=== PATIENT | female | born 1965 | race Caucasian/White ===

== ENCOUNTER 2017-12-19 07:46 | Emergency (ER) | payer OTHER ==
[2017-12-19 08:07] VITALS: BP 106/59
--- NOTE | 2017-12-19 08:30 | UC ---
Throat Pain/Nasal Sadiq HPI - HPI Summary HPI Summary: Pt c/o sudden onset fever, chills, nasal congestion, ST that has resolved since onset, sinus pressure, PND, X3 days. - History of Current Complaint Chief Complaint: UCGeneralIllness Stated Complaint: COLD SYMPTOMS Time Seen by Provider: 12/19/17 08:12 Hx Obtained From: Patient ?: No Onset/Duration: Sudden Onset, Still Present Severity: Mild Pain Intensity: 8 Associated Signs & Symptoms: Positive: Sinus Discomfort, Fever - Allergies/Home Medications Allergies/Adverse Reactions: Allergies Allergy/AdvReac Type Severity Reaction Status Date / Time No Known Allergies Allergy Verified 12/19/17 08:07 Home Medications: Home Medications Methylphenidate TAB* [Ritalin TAB*] 12/19/17 [History] PMH/Surg Hx/FS Hx/Imm Hx Previously Healthy: Yes - Surgical History Surgical History: Yes Surgery Procedure, Year, and Place: GASTRIC BYPASS, HERNIA REPAIR, GALLBLADDER REMOVAL, HYSTERECTOMY - Family History Known Family History: Positive: Cardiac Disease - Social History Occupation: Employed Full-time Lives: With Family Alcohol Use: None Substance Use Type: None Smoking Status (MU): Never Smoked Tobacco Have You Smoked in the Last Year: No - Immunization History Most Recent Influenza Vaccination: [id number] season Review of Systems Constitutional: Fever, Chills, Fatigue Skin: Negative Eyes: Negative ENT: Sore Throat, Ear Ache, Sinus Congestion, Sinus Pain/Tenderness Respiratory: Cough Cardiovascular: Negative Gastrointestinal: Negative Genitourinary: Negative Motor: Negative Neurovascular: Negative Musculoskeletal: Negative Neurological: Headache Psychological: Negative Is Patient Immunocompromised?: No All Other Systems Reviewed And Are Negative: Yes Physical Exam Triage Information Reviewed: Yes Appearance: Ill-Appearing Vital Signs: Initial Vital Signs Temp 98.6 F 12/19/17 08:01 Pulse 79 12/19/17 08:01 Resp 16 12/19/17 08:01 BP 106/59 12/19/17 08:01 Pulse Ox 98 12/19/17 08:01 Vital Signs Reviewed: Yes Eye Exam: Normal ENT Exam: Other ENT: Positive: Nasal congestion, Sinus tenderness Dental Exam: Other Dental: Positive: Other: - poor dentition Neck exam: Normal Respiratory Exam: Normal Cardiovascular Exam: Normal Musculoskeletal Exam: Normal Neurological Exam: Normal Psychological Exam: Normal Skin Exam: Normal Diagnostics - Laboratory Diagnostic Studies Completed/Ordered: Rapid flu: positive B Throat Pain/Nasal Course/Dx - Differential Dx/Diagnosis Differential Diagnosis/HQI/PQRI: Influenza, URI Provider Diagnoses: Influenza B Discharge - Discharge Plan Condition: Stable Disposition: HOME Prescriptions: Oseltamivir CAP* [Tamiflu CAP*] 75 mg PO Q12H #10 cap Patient Education Materials: Influenza (ED) Forms: *Work Release Referrals: Dilma Shaikh MD [Primary Care Provider] - If Needed
== END 2017-12-19 08:52 | disposition home or self-care (01) ==
LOC: UCCORT 07:46
DX: J10.1 Influenza due to other identified influenza virus with other respiratory manifestations (principal)
CPT/HCPCS: 87502; 99212; G0463

== ENCOUNTER 2018-11-20 07:39 | Emergency (ER) | payer OTHER ==
--- OUTSIDE RECORDS SUMMARY | 2018-11-20 07:48 | XMS REPORT ---
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 Active Onset: 10/29/2011 Prolapse of female genital organs Mariam Cartagena M.D. Active Onset: 10/29/2011 Rectal prolapse Mariam Cartagena M.D. Active Onset: 04/27/2012 Pre-surgery evaluation Kerry Burkett M.D. Active Onset: 04/27/2012 Excessive and frequent Kerry Burkett M.D. Active menstruation Onset: 04/27/2012 Disorder of oral soft tissues Kerry Burkett M.D. Active Onset: 08/25/2012 Acute maxillary sinusitis Adi Sanford M.D. 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 Active Onset: 02/17/2018 Abdominal pain Dilma Burleson M.D. Active Onset: 09/16/2015 Cramp and spasm Dilma Burleson M.D. Active Onset: 09/16/2015 Vitamin D deficiency Dilma Burleson M.D. Active Onset: 09/16/2015 Adjustment disorder with depressed Dilma Burleson M.D. Active mood Onset: 08/01/2013 Deficiency anemias Dilma Burleson M.D. Active Onset: 08/01/2013 Obesity Dilma Burleson M.D. Active Onset: 08/01/2013 Acute pancreatitis Dilma Burleson M.D. Active Family History Date Family Member(s) Problem(s) Comments General Breast CA - MGM, PGM,2 cousins had Breast CA in 30'scolon CA - MGF, PGM Father due to Diabetes () - 77. Mother 77.Diabetes, HT Attack age 62; CABG x3 age 64. Bladder Cancer. Number of Children 4. from 30-11. daughter lives in [place]. First Son healthy. lives in [place] Second Son Dilshad, ADHD. lives with father. in a custody machado x 11 years. First Daughter healthy. lives in [place]. Second Daughter healthy. lives in [place]. Number of Siblings Siblings: 2 First Brother DM. [place]. Second Brother HTN. Estranged since Mother's . In [facility]. 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 Usually liters of diet pepsi. Less than a liter diet pepsi () now 2 liter diet pepsi daily (03/21/15) Exercise Type/Frequency Does not exercise Current Currently Active The patient is currently not sexually active Allergies, Adverse Reactions, Alerts Date Description Reaction Status Severity Comments 10/29/2011 NKDA active Medications Medication Date Status Form Strength Qnty SIG Indications Ordering Provider Valacyclovir HCL 10/07 Active Tablets 500mg 20tabs take 1 B00.9 Dilma Melchor /Rose tablet by gerald Burleson M.D. twice a day x 5 days for an outbreak. Prednisone 10/04 Active Tablets 20mg 21tabs 3 tabs x 4 M46.1 Breanna Francia /2017 days, 2 Putnam, tab x 3 PACKAGE MAKER days, 1 tab x 3 days then stop Cyclobenzaprine 07/26 Active Tablets 5mg 60tabs one to two M46.1 Breanna Francia HCL /2017 tablet Putnam, every PACKAGE MAKER night at bedtime as needed Metoprolol 05/19 Active Tablets 25mg 90tabs take one F43.22 Dilma L. Tartrate /2017 tablet by Neel, mouth once M.D. a day Ondansetron 05/19 Active Tablets 4mg 60tabs dissolve 1 R10.9 Dilma L. Dispers tablet by Neel, mouth M.D. every 8 hours as needed for nausea Nystatin 02/17 Active Cream [id number] 30gm apply B35.6 Dilma L. t/GM cream Neel, twice M.D. daily to rash Magnesium/Potass 12/27 Active 1 po qd Unknown ium/Zinc Ritalin 03/21 Active Tablets 10mg 60tabs 1 by mouth F90.0 Dilma L. by mouth Neel, twice M.D. 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 mouthtwice Neel, - daily for M.D. 10/04 10 days. Diflucan 02/17 Hx Tablets 200mg 4tabs 1 by mouth B35.6 Dilma L. now. Neel, - repeat in M.D. 05/19 one week as necessary. Cyclobenzaprine 12/12 Hx Tablets 5mg 60tabs take 1 M54.2 Flor HCL tablet by Donaldson, - mouth M.D. 01/05 times daily as needed Amoxicillin 12/12 Hx Tablets 500mg 30tabs 1 by mouth J01.80 Dilma L. three Neel, - times M.D. 01/06 daily x days. Able To Return 12/12 Hx without J01.80 Dilma Melchor To Work 12/16/2015 Romel Lindsey. Has M.D. 04/28 incapcitat ed this week due to illness. Amoxicillin 05/16 Hx Tablets 875mg 20tabs 1 by mouth 461.0 Dilma L. /2014 twice a Neel, - day x 10 M.D. Vitamin D3 03/21 Hx Capsules [id number] 12caps 1 by mouth 268.9 Dilma L. /2014 weekly for Neel - 12 weeks M.D. 09/16 Metronidazole 03/14 Hx Tablets 500mg 52tabs 1po three 009.3 Dilma L. times a Neel, - day x 14 M.D. Methocarbamol 09/03 Hx Tablets 500mg 120tabs 1-2 pills 724.2 Dilma L. up to 4 Neel, - times M.D. 03/14 daily. Off Work Note. 09/03 Hx medical 724.2 Dilma L. 09/03, , And excuse Neel - M.D. 03/14 Vesicare 06/19 Hx Tablets 5mg 30tabs 1 po daily 788.33 Shayla Brown, PACKAGE MAKER - 03/14 Escitalopram 04/23 Hx Tablets 20mg 30tabs 1 po qd 311 Dilma L. Oxalate Neel - M.D. 03/14 Vitamin D 02/17 Hx Capsules [id number] 8caps 1 po Dilma L. /2013 weekly x Neel - 8. M.D. 04/23 Escitalopram 02/05 Hx Tablets 10mg 45tabs 2 po qd 311 Dilma L. Oxalate Romel Burleson M.D. 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 09/04 Note For Work 08/25 Hx Please Adi Dick /2011 excuse Romel Sanford absence M.DDenilson 08/26 from work today. May return without restrictio n tomorrow. Denavir 04/27 Hx Cream 1% 3grams apply 528.9 Kerry Patton topically aMdelaine - to Rodrigo.Yara 08/25 affected area on lips and face every 2 hours whileawake for 4 days Amoxicillin/Clav 02/04 Hx Tablets 500-125mg 20tabs 1 po bid x 461.9 Harini ulanate /2011 10 days Usha, Potassium - Afnp-C 04/27 Note For Work 02/04 Hx may return 461.9 Harini to work Usha, - tomorrow Afnp-C 02/07 w/o /2011 restrictio ns Phenazopyridine 10/29 Hx Tablets 200mg 12tabs 1 tab po Mariam Livingston HCL /2010 tid prn Osiel - urinary/pe [place] 04/27 lvic pain /2011 Note For Work 10/29 Hx Please Mariam Livingston /2010 excuse Osiel - absence M.DDenilson 02/04 from work today. Ciprofloxacin 02/20 Hx Tablets 500mg 20tabs 1 po bid Hipolito T. HCL Romel Porter M.D. 10/29 Note For Work 02/20 Hx seen today Hipolito Cordova /2010 for Romel Porter medical [place] 10/29 problem. no work 02/19-02/20 due to illness. may return 02/21 Penvk 12/01 Hx 500 20units use bid Yosi Garcia /2010 x 10 days Romel Ernst M.D. 10/29 Ritalin 09/08 Hx Tablets 20mg 1 po bid prn - 10/29 Ok To Return To 07/17 Hx 577.0 Dilma L. Work Full Duty. oRmel Burleson M.D. 09/08 Penicillin V 06/26 Hx Tablets 500mg 30tabs 1 po tid x 525.9 Harini Potassium 10 days Usha, - Afnp-C 09/08 Out Of Work 06/26 Hx Latasha was 525.9 Harini seen today Usha, - in this Afnp-C 06/30 office Xanax 02/25 Hx Tablets 0.25mg 30tabs 1 po at Dina tid prn Klarissa - Afnp-C 06/26 Zithromax Z-Jose 11/15 Hx Tablets 250mg 1Pack as Yosi Garcia /2009 directed Romel Ernst M.D. 02/25 Work Excuse 11/15 Hx unable to Yosi LopezDenilson work for [employer], - 2-3 days M.D. 02/25 Cymbalta 08/14 Hx 60mg 30units 1 po qd 311 Klarissa, - Afnp-C 10/29 Zoloft 06/19 Hx Tablets 50mg 30tabs 1/2 tab po 311 qd x 1 wk; Usha, - then 1 po Afnp-C 08/14 Work Excuse 01/03 Hx Patient Was Out Of Usha, - Work From Afnp-C 06/19 12/21- Patient May Return To Work On 12/25 Without Restrictio ns Work Excuse 01/01 Hx Was Seen Here For Usha, - The First Afnp-C 01/03 Time On 12/25/08 For Neck Pain Stating She Was Out Of Work Since 12/21; She May Return For Wor Note For Work 12/25 Hx latasha march 847.0 resume Usha, - work w/o Afnp-C 01/01 restrictio ns Flexeril 12/25 Hx Tablets 10mg 20tabs 1 po tid 847.0 prn muscle Usha, - spasm Afnp-C 08/14 Ritalin LA Hx Caps ER 40mg 1 po bid Unknown /0000 24HR - 09/08 Alprazolam Hx Tablets 0.5mg 1 po bid Unknown /0000 prn - 10/29 Strattera Hx Capsules 40mg sample 1 daily as Unknown /0000 directed - 02/04 Concerta Hx Tablets 36mg 30tabs 1 po qd Unknown /0000 ER disp - thirty 01/12 Adderall Hx Tablets 20mg 1 po tid Unknown /0000 - 07/03 It Works For 00 Hx 1 po w/ Unknown Hair, Skin & /0000 each meal Nails - 03/14 Labetalol HCL 00 Hx Tablets 100mg take one Unknown /0000 by mouth - daily 04/28 Medications Administered in Office Medication Date Status Form Strength Qnty SIG Indications Ordering Provider TB Intradermal 12/13/ Administered Injection Dilma Sandoval 2016 [place] Burleson B-12 Injection 02/04/ Administered Injection Harini 2011 Usha, Afnp-C Injection 02/04/ Administered Injection Harini Subcutaneous Or 2011 Usha, Intramuscular Afnp-C B-12 Injection 02/20/ Administered Injection Hipolito TDenilson 2010 Midwilfredo MDenilsonDDenilson Injection 02/20/ Administered Injection Hipolito Art Subcutaneous Or 2010 Midura, Intramuscular M.DDenilson B-12 Injection 12/01/ Administered Injection Yosi JDenilson 2010 Breimasaray MDenilsonDDenilson Injection 12/01/ Administered Injection Yosi Jose Subcutaneous Or 2010 Breimasaray, Intramuscular M.DDenilson B-12 Injection 09/23/ Administered Injection Kerry Patton 2009 Trin[place] Burkett Injection 09/23/ Administered Injection Kerry Patton Subcutaneous Or 2009 Madelaine Intramuscular Rodrigo.Yara Immunizations CPT Code Status Date Vaccine Lot # [id number] Given 08/20/2014 DO Not Use Split Influenza Virus Vaccine [id number] Given 08/01/2013 DO Not Use Split Influenza Virus Vaccine [id number] Given 02/25/2010 Tdap Tetanus, W Pertussis [id number] Given 11/08/1997 Tetanus And Diptheria Adult Preservative Free >7Yrs Vital Signs Date Vital Result Comment 10/07/2018 BP Systolic 98 mmHg BP Diastolic 70 mmHg Heart Rate 78 /min Body Temperature 98.0 F Respiratory Rate 18 /min Weight 201.00 lb 10/04/2018 BP Systolic 110 mmHg BP Diastolic 70 mmHg Heart Rate 72 /min Body Temperature 98.2 F Respiratory Rate 18 /min Weight 201.00 lb 07/26/2018 BP Systolic 128 mmHg BP Diastolic 66 mmHg Heart Rate 68 /min Body Temperature 98.2 F Respiratory Rate 16 /min 07/01/2018 BP Systolic 108 mmHg BP Diastolic 70 mmHg Heart Rate 68 /min Body Temperature 97.9 F Height 65 inches 5'5" Weight 199.00 lb BMI (Body Mass Index) 33.1 kg/m2 Right Visual Acuity Distance 20/20 Left Visual Acuity Distance 20/25 05/19/2018 BP Systolic 120 mmHg BP Diastolic 78 mmHg Heart Rate 68 /min Body Temperature 98.3 F Respiratory Rate 18 /min Weight 200.00 lb 02/17/2018 BP Systolic 110 mmHg BP Diastolic 76 mmHg Heart Rate 68 /min Body Temperature 98.1 F Respiratory Rate 18 /min Weight 211.00 lb 10/20/2017 BP Systolic 110 mmHg BP Diastolic 64 mmHg Heart Rate 66 /min Body Temperature 98.4 F Respiratory Rate 16 /min Weight 222.00 lb 02/24/2017 BP Systolic 90 mmHg BP Diastolic 64 mmHg Heart Rate 78 /min Body Temperature 99.1 F Respiratory Rate 16 /min Weight 224.12 lb 12/21/2016 BP Systolic 120 mmHg BP Diastolic 70 mmHg Heart Rate 80 /min Body Temperature 98.1 F Respiratory Rate 18 /min Weight 226.00 lb 12/12/2016 BP Systolic 128 mmHg BP Diastolic 74 mmHg Heart Rate 80 /min Body Temperature 98.0 F Respiratory Rate 18 /min Weight 225.00 lb 11/16/2016 BP Systolic 100 mmHg BP Diastolic 60 mmHg Heart Rate 68 /min Body Temperature 98.9 F Respiratory Rate 18 /min Weight 222.00 lb 09/09/2016 BP Systolic 116 mmHg BP Diastolic 64 mmHg Heart Rate 72 /min Body Temperature 98.2 F Respiratory Rate 16 /min Height 64.5 inches 5'4.50" measured 09/09/16 Weight 218.38 lb BMI (Body Mass Index) 36.9 kg/m2 04/28/2016 BP Systolic 100 mmHg BP Diastolic 76 mmHg Heart Rate 76 /min Body Temperature 98.3 F Respiratory Rate 16 /min Height 64.5 inches 5'4.50" Weight 223.00 lb BMI (Body Mass Index) 37.7 kg/m2 01/07/2016 BP Systolic 104 mmHg BP Diastolic 60 mmHg Heart Rate 72 /min Body Temperature 99.0 F Respiratory Rate 16 /min Height 64.5 inches 5'4.50" 12/12/2015 BP Systolic 120 mmHg BP Diastolic 70 mmHg Heart Rate 80 /min Body Temperature 99.0 F Respiratory Rate 18 /min Height 64.5 inches 5'4.50" Weight 216.00 lb BMI (Body Mass Index) 36.5 kg/m2 09/16/2015 BP Systolic 118 mmHg BP Diastolic 78 mmHg Heart Rate 72 /min Body Temperature 98.7 F Respiratory Rate 16 /min Height 64.5 inches 5'4.50" Weight 211.00 lb BMI (Body Mass Index) 35.7 kg/m2 06/27/2015 BP Systolic 120 mmHg BP Diastolic 80 mmHg Heart Rate 80 /min Respiratory Rate 18 /min Height 64.5 inches 5'4.50" Weight 210.00 lb BMI (Body Mass Index) 35.5 kg/m2 05/16/2015 BP Systolic 126 mmHg BP Diastolic 70 mmHg Heart Rate 70 /min Body Temperature 99.5 F Respiratory Rate 18 /min Height 64.5 inches 5'4.50" Weight 209.00 lb BMI (Body Mass Index) 35.3 kg/m2 03/21/2015 BP Systolic 120 mmHg BP Diastolic 70 mmHg Heart Rate 68 /min Body Temperature 98.7 F Respiratory Rate 18 /min Height 64.5 inches 5'4.50" Weight 211.00 lb BMI (Body Mass Index) 35.7 kg/m2 03/14/2015 BP Systolic 110 mmHg BP Diastolic 70 mmHg Heart Rate 60 /min Body Temperature 98.1 F Respiratory Rate 18 /min Height 65 inches 5'5" Weight 207.00 lb BMI (Body Mass Index) 34.4 kg/m2 09/03/2014 BP Systolic 110 mmHg BP Diastolic 80 mmHg Heart Rate 66 /min Body Temperature 97.3 F Respiratory Rate 16 /min Height 65 inches 5'5" Weight 208.25 lb BMI (Body Mass Index) 34.7 kg/m2 06/19/2014 BP Systolic 126 mmHg BP Diastolic 80 mmHg Heart Rate 72 /min Body Temperature 97.7 F Respiratory Rate 16 /min Height 65 inches 5'5" Weight 210.00 lb BMI (Body Mass Index) 34.9 kg/m2 04/23/2014 BP Systolic 128 mmHg BP Diastolic 80 mmHg Heart Rate 72 /min Body Temperature 98.4 F Respiratory Rate 16 /min Height 65 inches 5'5" Weight 211.25 lb BMI (Body Mass Index) 35.1 kg/m2 03/12/2014 BP Systolic 114 mmHg BP Diastolic 66 mmHg Heart Rate 66 /min Body Temperature 98.0 F Respiratory Rate 16 /min Height 65 inches 5'5" Weight 209.25 lb BMI (Body Mass Index) 34.8 kg/m2 02/05/2014 BP Systolic 116 mmHg BP Diastolic 72 mmHg Heart Rate 72 /min Body Temperature 98.9 F Respiratory Rate 16 /min Height 65 inches 5'5" Weight 210.38 lb BMI (Body Mass Index) 35.0 kg/m2 08/01/2013 BP Systolic 106 mmHg BP Diastolic 66 mmHg Heart Rate 84 /min Body Temperature 99.1 F Respiratory Rate 16 /min Height 65 inches 5'5" measured Weight 215.25 lb BMI (Body Mass Index) 35.8 kg/m2 07/03/2013 BP Systolic 110 mmHg BP Diastolic 80 mmHg Heart Rate 72 /min Body Temperature 98.6 F Respiratory Rate 15 /min Height 65 inches 5'5" Weight 218.00 lb BMI (Body Mass Index) 36.3 kg/m2 04/26/2013 BP Systolic 116 mmHg BP Diastolic 82 mmHg Heart Rate 78 /min Body Temperature 99.4 F Respiratory Rate 16 /min Height 65 inches 5'5" Weight 209.25 lb BMI (Body Mass Index) 34.8 kg/m2 02/09/2013 BP Systolic 120 mmHg BP Diastolic 72 mmHg Heart Rate 84 /min Body Temperature 98.3 F Respiratory Rate 18 /min Height 65 inches 5'5" Weight 213.38 lb BMI (Body Mass Index) 35.5 kg/m2 01/12/2013 BP Systolic 110 mmHg BP Diastolic 80 mmHg Heart Rate 72 /min Body Temperature 98.8 F Respiratory Rate 16 /min Height 65 inches 5'5" Weight 220.00 lb BMI (Body Mass Index) 36.6 kg/m2 08/25/2012 BP Systolic 102 mmHg BP Diastolic 70 mmHg Heart Rate 68 /min Body Temperature 98.0 F Respiratory Rate 16 /min O2 % BldC Oximetry 98 % Height 65 inches 5'5" Weight 210.00 lb BMI (Body Mass Index) 34.9 kg/m2 04/27/2012 BP Systolic 110 mmHg BP Diastolic 72 mmHg Heart Rate 90 /min Body Temperature 99.3 F Height 65 inches 5'5" Weight 202.00 lb BMI (Body Mass Index) 33.6 kg/m2 02/05/2012 BP Systolic 110 mmHg BP Diastolic 70 mmHg Heart Rate 72 /min Body Temperature 98.4 F Height 65 inches 5'5" Weight 208.00 lb BMI (Body Mass Index) 34.6 kg/m2 10/29/2011 BP Systolic 114 mmHg BP Diastolic 62 mmHg Heart Rate 96 /min Body Temperature 97.6 F Height 65 inches 5'5" Weight 190.00 lb BMI (Body Mass Index) 31.6 kg/m2 02/20/2011 BP Systolic 104 mmHg BP Diastolic 60 mmHg Heart Rate 84 /min Body Temperature 99.0 F Height 65 inches 5'5" Weight 187.00 lb BMI (Body Mass Index) 31.1 kg/m2 12/01/2010 BP Systolic 90 mmHg BP Diastolic 50 mmHg Heart Rate 76 /min Body Temperature 97.9 F Height 65 inches 5'5" Weight 195.00 lb BMI (Body Mass Index) 32.4 kg/m2 09/08/2010 BP Systolic 110 mmHg BP Diastolic 70 mmHg Heart Rate 80 /min Body Temperature 99.4 F Height 65 inches 5'5" Weight 197.00 lb BMI (Body Mass Index) 32.8 kg/m2 07/17/2010 BP Systolic 120 mmHg BP Diastolic 60 mmHg Heart Rate 72 /min Body Temperature 98.8 F Height 65 inches 5'5" Weight 200.00 lb BMI (Body Mass Index) 33.3 kg/m2 06/26/2010 BP Systolic 110 mmHg BP Diastolic 72 mmHg Heart Rate 76 /min Body Temperature 97.6 F Height 65 inches 5'5" Weight 200.00 lb BMI (Body Mass Index) 33.3 kg/m2 02/25/2010 BP Systolic 120 mmHg BP Diastolic 72 mmHg Heart Rate 80 /min Weight 207.00 lb 11/15/2009 BP Systolic 120 mmHg BP Diastolic 70 mmHg Heart Rate 88 /min Body Temperature 99.4 F Height 65 inches 5'5" Weight 211.00 lb BMI (Body Mass Index) 35.1 kg/m2 08/14/2009 BP Systolic 100 mmHg BP Diastolic 70 mmHg Heart Rate 60 /min Body Temperature 99.2 F Weight 217.00 lb 06/19/2009 BP Systolic 94 mmHg BP Diastolic 50 mmHg Heart Rate 88 /min Body Temperature 98.9 F Height 65 inches 5'5" Weight 221.00 lb BMI (Body Mass Index) 36.8 kg/m2 12/25/2008 BP Systolic 122 mmHg BP Diastolic 80 mmHg Heart Rate 72 /min Body Temperature 97.3 F Height 65 inches 5'5" Weight 225.00 lb BMI (Body Mass Index) 37.4 kg/m2 Results Test Date Test Result H/L Range Note Laboratory test finding 07/01/2018 HSV Type 1-Specific 3.02 index High 0.00-0.90 1, 2 Ab, IgG HSV-2 Type Spec Ab, IgG w/Rflx <0.91 index 0.00-0.90 1, 3 HSV, Igm I/II 07/01/2018 HSV, IgM I/II <0.91 Ratio 0.00-0.90 1, 4 Combination Combination HSV Culture And Typing 07/01/2018 HSV Culture/Type See Comment: 1, 5 Laboratory test 07/01/2018 TSH 0.53 mIU/L 0.50-6.00 finding CBC Electronic Fma 07/01/2018 WBC 7.4 x10^3/UL 4.0-10.0 RBC 4.66 x10^6/UL 3.93-6.00 HGB 13.1 g/dL 12.0-17.0 HCT 39 % 35-50 MCV 83.9 fL 80.0-95.0 MCH 28.1 pg 25.6-32.2 MCHC 33.5 g/dL 32.2-36.0 RDW-CV 13.3 % 11.6-14.4 PLT 251 x10^3/UL 163-400 MPV 9.2 fL Low 9.4-12.4 Eleuterio# 4.10 x10^3/UL 1.56-6.13 Lymph# 2.58 x10^3/UL 1.18-3.74 [place]# 0.52 x10^3/UL 0.24-0.82 Eos # 0.2 x10^3/UL 0.0-0.5 Baso # 0.03 x10^3/UL 0.01-0.08 Eleuterio% 55.1 % 34.0-70.0 Lymph % 34.7 % 20.0-52.0 [place]% 7.0 % 5.0-12.0 Eos% 2.8 % 0.7-7.0 Baso% 0.4 % 0.1-1.2 Lipid Profile 07/01/2018 Cholesterol 174 mg/dL 120-200 Triglycerides 70 mg/dL 30-200 HDL Cholesterol 76 mg/dL 30-85 LDL (Calculated) 84 CALC 0-129 VLDL Cholesterol 14 mg/dL 0-50 HDL Risk Factor 2.3 CALC 0.0-4.4 Comprehensive Metabolic Prof 07/01/2018 Sodium 142 mEq/L 134-149 Potassium 4.4 mEq/L 3.6-5.5 Chloride 108 mEq/L 94-112 Carbon Dioxide 27 mEq/L 21-32 Glucose 99 mg/dL 70-105 BUN 12 mg/dL 6-26 Creatinine 0.7 mg/dL 0.6-1.4 BUN/Creat Ratio 17.1 CALC 8.0-36.0 Calcium 8.7 mg/dL 8.6-10.2 Total Protein 6.8 g/dL 6.4-8.3 Albumin 4.5 g/dL 3.8-5.5 Globulin 2.3 g/dL 2.0-4.8 A/G Ratio 2.0 CALC 0.6-2.3 Alk. Phosphatase 123 U/L High 30-110 Alt (SGPT) 13 U/L 7-35 Ast (Sgot) 18 U/L 5-34 Total Bilirubin 0.3 mg/dL 0.2-1.3 GFR Non- >60 ml/min/1.73m^ >=60 GFR >60 ml/min/1.73m^ >=60 Laboratory test finding 02/17/2018 Hemoglobin A1c (Fma) 5.7 % 4.1-5.7 Ua - Micro (Fma) 02/17/2018 Appearance clear Color yellow Glucose, Urine (Fma/CMC/CTX) - Bilirubin - Ketones - SP Grav 1.015 Blood trace (intact) PH 7.0 Protein - Urobil 0.2 Nitrite - Leukocytes (Fma/CMC/Centrex) small Hyaline - /Lpf Granular - /Lpf WBC (Fma,Centrex) 5-8 RBC 0-2 Mucus - /Lpf Epith occ /Lpf Bacteria rare /Hpf Amorphous - /Lpf Crystals, Fluid (Fma/CMC/CTX) - Z#Comments - Comprehensive Metabolic Prof 02/17/2018 Sodium 139 mEq/L 134-149 Potassium 5.3 mEq/L 3.6-5.5 Chloride 105 mEq/L 94-112 Carbon Dioxide 26 mEq/L 21-32 Glucose 90 mg/dL 70-105 BUN 10 mg/dL 6-26 Creatinine 0.7 mg/dL 0.6-1.4 BUN/Creat Ratio 14.3 CALC 8.0-36.0 Calcium 8.9 mg/dL 8.6-10.2 Total Protein 7.1 g/dL 6.4-8.3 Albumin 4.4 g/dL 3.8-5.5 Globulin 2.7 g/dL 2.0-4.8 A/G Ratio 1.6 CALC 0.6-2.3 Alk. Phosphatase 139 U/L High 30-110 6 Alt (SGPT) 13 U/L 7-35 Ast (Sgot) 16 U/L 5-34 Total Bilirubin 0.4 mg/dL 0.2-1.3 GFR Non- >60 ml/min/1.73m^ >=60 GFR >60 ml/min/1.73m^ >=60 Rapid Influenza A & B 12/19/2017 Influenza A Molecular NEGATIVE Negative 7 Molecular Influenza B Molecular POSITIVE Negative Measles/Mumps/Rubella 10/23/2017 Rubella 16.10 index Immune >0.99 8, 9 Immunity Antibodies, IgG Rubeola Ab, IgG 117.0 AU/mL Immune >29.9 8, 10 Mumps Abs, IgG 83.0 AU/mL Immune >10.9 8, 11 Thyroid Antibody & 02/24/2017 Thyroid Peroxidase (Tpo) Ab 13 IU/mL 0-34 12 Peroxidase Thyroglobulin Antibody <1.0 IU/mL 0.0-0.9 12, 13 Laboratory test finding 12/21/2016 TSH 0.58 mIU/L 0.50-6.00 Free T4 1.15 ng/dL 0.75-1.54 Free T3 2.53 pg/mL 2.00-4.90 Laboratory test finding 11/16/2016 Thyroid Peroxidase (Tpo) Ab 15 IU/mL 0 -34 14 Thyrotropin Receptor Ab, Serum <0.50 IU/L 0.00-1.75 14 Thyroid Stim Immunoglobulin 47 % 0-139 14 Thyroxine Binding Globulin 24 ug/mL 13-39 14 Laboratory test finding 11/16/2016 TSH 0.43 mIU/L Low 0.50-6.00 15 Free T3 2.78 pg/mL 2.00-4.90 Free T4 1.09 ng/dL 0.75-1.54 Complete Blood Count 11/16/2016 WBC 7.2 x10^3/UL 3.6-9.6 RBC 4.96 x10^6/UL 3.90-5.70 HGB 13.7 g/dL 12.1-17.2 HCT 41 % 36-50 MCV 83.0 fL 82.2-97.4 MCH 27.6 pg 27.6-33.3 MCHC 33.1 g/dL 33.0-35.5 RDW 15.3 % High 11.6-13.7 PLT 263 x10^3/UL 150-400 MPV 7.0 fL Low 7.4-10.4 Gran # 3.8 x10^3/UL 1.5-7.2 Lymph# 3.0 x10^3/UL 0.7-4.9 [place]# 0.4 x10^3/UL 0.1-0.9 Gran % 51.4 % 42.2-75.2 Lymph % 43.0 % 20.5-51.1 [place]% 5.6 % 1.7-9.3 Complete Blood Count 09/16/2016 WBC 5.7 x10^3/UL 3.6-9.6 RBC 4.97 x10^6/UL 3.90-5.70 HGB 13.6 g/dL 12.1-17.2 HCT 41 % 36-50 MCV 82.0 fL Low 82.2-97.4 MCH 27.4 pg Low 27.6-33.3 MCHC 33.2 g/dL 33.0-35.5 RDW 14.5 % High 11.6-13.7 PLT 240 x10^3/UL 150-400 MPV 6.8 fL Low 7.4-10.4 Gran # 3.2 x10^3/UL 1.5-7.2 Lymph# 2.3 x10^3/UL 0.7-4.9 [place]# 0.2 x10^3/UL 0.1-0.9 Gran % 55.0 % 42.2-75.2 Lymph % 40.4 % 20.5-51.1 [place]% 4.6 % 1.7-9.3 Lipid Profile 09/16/2016 Cholesterol 207 mg/dL High 120-200 Triglycerides 51 mg/dL 30-200 HDL Cholesterol 85 mg/dL 30-85 LDL (Calculated) 112 CALC 0-129 VLDL Cholesterol 10 mg/dL 0-50 HDL Risk Factor 2.4 CALC 0.0-4.4 Laboratory test finding 09/16/2016 TSH 0.27 mIU/L Low 0.50-6.00 16 Vitamin D25 33 30-100 Comprehensive Metabolic Prof 09/16/2016 Sodium 142 mEq/L 134-149 Potassium 4.3 mEq/L 3.6-5.5 Chloride 102 mEq/L 94-112 Carbon Dioxide 25 mEq/L 21-32 Glucose 95 mg/dL 70-105 BUN 14 mg/dL 6-26 Creatinine 0.7 mg/dL 0.6-1.4 BUN/Creat Ratio 20.0 CALC 8.0-36.0 Calcium 8.7 mg/dL 8.6-10.2 Total Protein 6.8 g/dL 6.4-8.3 Albumin 4.2 g/dL 3.8-5.5 Globulin 2.6 g/dL 2.0-4.8 A/G Ratio 1.6 CALC 0.6-2.3 Alk. Phosphatase 123 U/L High 30-110 17 Alt (SGPT) 17 U/L 7-35 Ast (Sgot) 22 U/L 5-34 Total Bilirubin 0.4 mg/dL 0.2-1.3 GFR Non- >60 ml/min/1.73m^ >=60 GFR >60 ml/min/1.73m^ >=60 Ua - Micro (Fma) 09/16/2016 Appearance CLEAR Color YELLOW Glucose, Urine (Fma/CMC/CTX) NEG Bilirubin NEG Ketones NEG SP Grav 1.025 Blood NEG PH 5.5 Protein NEG Urobil 0.2 Nitrite NEG Leukocytes (Fma/CMC/Centrex) SMALL Hyaline - /Lpf Granular - /Lpf WBC (Fma,Centrex) 3-5 RBC 0-1 Mucus (Fma/CBC/Centrex) - /Lpf Epith RARE /Lpf Bacteria RARE /Hpf Amorphous (Fma/CMC/Centrex) - /Lpf Crystals, Fluid (Fma/CMC/CTX) - Z#Comments - Urine Culture Routine 09/09/2016 Urine Culture, Routine Final report 18 , 19 Result 1 See Comment: 18, 20 Ua - Micro (Fma) 09/09/2016 Appearance CLEAR Color YELLOW Glucose, Urine (Fma/CMC/CTX) NEG Bilirubin NEG Ketones NEG SP Grav 1.015 Blood NEG PH 5.5 Protein NEG Urobil 0.2 Nitrite NEG Leukocytes (Fma/CMC/Centrex) SMALL Hyaline - /Lpf Granular - /Lpf WBC (Fma,Centrex) 3-5 RBC 0-1 Mucus - /Lpf Epith LRG AMT /Lpf Bacteria TRACE /Hpf Amorphous - /Lpf Crystals, Fluid (Fma/CMC/CTX) - Z#Comments SEE COMMENTS 21 Influenza A&B-a 01/07/2016 Influenza A NEGATIVE Influenza B NEGATIVE Influenza A&B-a 12/12/2015 Influenza A neg Influenza B neg Ua - Non Micro (Fma) 03/21/2015 Appearance CLEAR Color YELLOW Glucose, Urine (Fma/CMC/CTX) NEG Bilirubin NEG Ketones NEG SP Grav 1.010 Blood NEG PH 6.0 Protein NEG Urobil 0.2 Nitrite NEG Leukocytes (a/[facility]/Centrex) NEG Stool Culture 03/14/2015 Stool Culture (SEE NOTE) 22 O&P Ova & Parasites 03/14/2015 Ova Parasite Concen SEE RESULT BELOW 23 Full Full Laboratory test 03/14/2015 C. difficile (SEE NOTE) 24 finding Amplified Dna Laboratory test 03/14/2015 Lipase 43 U/L 1-64 25 finding Complete Blood Count 03/14/2015 WBC 4.7 x10^3/UL 3.6-9.6 RBC 4.85 x10^6/UL 3.90-5.70 HGB 12.6 g/dL 12.1-17.2 HCT 39 % 36-50 MCV 79.0 fL Low 82.2-97.4 26 MCH 26.1 pg Low 27.6-33.3 27 MCHC 32.8 g/dL Low 33.0-35.5 28 RDW 14.2 % High 11.6-13.7 PLT 247 x10^3/UL 150-400 MPV 6.8 fL Low 7.4-10.4 Gran # 2.6 x10^3/UL 1.5-7.2 Lymph# 1.8 x10^3/UL 0.7-4.9 [place]# 0.3 x10^3/UL 0.1-0.9 Gran % 54.5 % 42.2-75.2 Lymph % 38.6 % 20.5-51.1 [place]% 6.9 % 1.7-9.3 Laboratory test finding 03/14/2015 TSH 0.70 mIU/L 0.50-6.00 Lipid Profile 03/14/2015 Cholesterol 138 mg/dL 120-200 Triglycerides 66 mg/dL 30-200 HDL Cholesterol 50 mg/dL 30-85 LDL (Calculated) 75 CALC 0-129 VLDL Cholesterol 13 mg/dL 0-50 HDL Risk Factor 2.8 CALC 0.0-4.4 Laboratory test finding 03/14/2015 Vitamin D25 27 Low 30-100 Comprehensive Metabolic Prof 03/14/2015 Sodium 138 mEq/L 134-149 Potassium 4.0 mEq/L 3.6-5.5 Chloride 102 mEq/L 94-112 Carbon Dioxide 26 mEq/L 21-32 Glucose 96 mg/dL 70-105 BUN 14 mg/dL 6-26 Creatinine 0.7 mg/dL 0.6-1.4 BUN/Creat Ratio 20.0 CALC 8.0-36.0 Calcium 8.9 mg/dL 8.6-10.2 Total Protein 6.9 g/dL 6.4-8.3 Albumin 4.0 g/dL 3.8-5.5 Globulin 2.9 g/dL 2.0-4.8 A/G Ratio 1.4 CALC 0.6-2.3 Alk. Phosphatase 119 U/L High 30-110 29 Alt (SGPT) 18 U/L 7-35 Ast (Sgot) 27 U/L 5-34 Total Bilirubin 0.2 mg/dL 0.2-1.3 Laboratory test finding 03/14/2015 Amylase, Serum 47 U/L 20-105 Laboratory test finding 10/03/2014 [facility] [place] Complete Blood Count 06/19/2014 WBC 6.2 x10^3/UL 3.6-9.6 RBC 4.69 x10^6/UL 3.90-5.70 HGB 13.2 g/dL 12.1-17.2 HCT 41 % 36-50 MCV 86.0 fL 82.2-97.4 MCH 28.2 pg 27.6-33.3 MCHC 32.7 g/dL Low 33.0-35.5 RDW 11.8 % 11.6-13.7 PLT 244 x10^3/UL 150-400 MPV 7.4 fL 7.4-10.4 Gran # 3.6 x10^3/UL 1.5-7.2 Lymph# 2.4 x10^3/UL 0.7-4.9 [place]# 0.2 x10^3/UL 0.1-0.9 Gran % 55.3 % 42.2-75.2 Lymph % 40.2 % 20.5-51.1 [place]% 4.5 % 1.7-9.3 Comprehensive Metabolic Prof 06/19/2014 Sodium 140 mEq/L 134-149 Potassium 4.1 mEq/L 3.6-5.5 Chloride 96 mEq/L 94-112 Carbon Dioxide 24 mEq/L 21-32 Glucose 95 mg/dL 70-105 BUN 10 mg/dL 6-26 Creatinine 0.7 mg/dL 0.6-1.4 BUN/Creat Ratio 14.3 CALC 8.0-36.0 Calcium 9.6 mg/dL 8.6-10.2 Total Protein 8.1 g/dL 6.3-8.1 Albumin 4.8 g/dL 3.8-5.5 Globulin 3.5 g/dL 2.0-4.8 A/G Ratio 1.5 CALC 0.6-2.3 Alk. Phosphatase 125 U/L High 30-110 Alt (SGPT) 21 U/L 7-35 Ast (Sgot) 24 U/L 5-34 Total Bilirubin 0.6 mg/dL 0.2-1.3 Ua - Non Micro (a) 06/19/2014 Appearance yellow Color clear Glucose neg Bilirubin neg Ketones neg SP Grav 1.010 Blood neg PH 5.5 Protein neg Urobil .2 Nitrite neg Leukocytes (a/[facility]/Centrex) neg Laboratory test finding 06/19/2014 Amylase, Serum 61 U/L 20-105 Laboratory test finding 02/06/2014 Vitamin D25 21 Low 30-100 TSH 1.10 mIU/L 0.50-6.00 Lipid Profile 08/14/2013 Cholesterol 201 mg/dL High 120-200 HDL 78 mg/dL 30-85 Triglycerides 54 mg/dL 30-200 HDL Risk Factor 2.6 CALC 0.0-4.4 LDL (Calculated) 111 CALC 0-129 VLDL (Calculated) 11 mg/dL 0-50 Laboratory test finding 08/14/2013 TSH 0.48 mIU/L Low 0.50-6.00 30 Ua - Non Micro (Fma) 08/01/2013 Appearance yellow Color clear Glucose neg Bilirubin neg Ketones neg SP Grav 1.015 Blood neg PH 5.5 Protein neg Urobil 0.2 Nitrite neg Leukocytes ([facility]/Centrex) neg Laboratory test 08/01/2013 Thin Prep SEE NOTE 31 finding W/HPV(Lsil/CONRADO/Asc) Hepatitis Acute 07/03/2013 Hep B Surface Antigen NON-REACTIVE Non-Reac 32 Panel tive Hep C Antibody NON-REACTIVE Non-Reactive 32 Hep C S/Co Ratio 0.1 0.0-0.7 32 Hep B Core Antibody Igm NON-REACTIVE Non-Reactive 32 Hep A Antibody Igm NON-REACTIVE Non-Reactive 32 Laboratory test finding 07/03/2013 Lipase 41 U/L 1-64 32 Comprehensive Metabolic Prof 07/03/2013 Albumin 4.3 g/dL 3.8-5.5 Alk. Phos. 130 U/L High 30-110 Alt (SGPT) 62 U/L High 7-35 Ast (Sgot) 51 U/L High 5-34 BUN 18 mg/dL 6-26 Calcium 9.2 mg/dL 8.6-10.2 Chloride 105 mEq/L 94-112 Creatinine 0.8 mg/dL 0.6-1.4 Carbon Dioxide 25 mEq/L 21-32 Glucose 101 mg/dL 70-105 Sodium 140 mEq/L 134-149 Total Bilirubin 0.3 mg/dL 0.2-1.3 Total Protein 7.0 g/dL 6.3-8.1 Potassium 4.0 mEq/L 3.6-5.5 Globulin 2.6 g/dL 2.0-4.8 A/G Ratio 1.6 Calc 0.6-2.3 BUN/Creat Ratio 21.7 Calc 8.0-36.0 Laboratory test finding 07/03/2013 Amylase 55 U/L 20-105 CBC Electronic ([facility]) 07/03/2013 WBC 7.1 3.6-9.6 RBC 4.38 3.90-5.70 Hemoglobin (Fma/CMC/CTX) 10.9 g/dL Low 12.1 - 17.2 Hematocrit (Fma/CMC/CTX) 34.5 % Low 36.1 - 50.3 Platelets 237 10^3/ul 150-400 Lymph% 40.5 20.5-51.1 Mixed% 6.5 Neutrophils % 53.0 Mean Corpuscular Vol 79 Low 82.2-97.4 Mean Corpuscular Hemoglobin 25.0 Low 27.6-33.3 Mean Corpuscular Hemo Concen 31.7 Low 32.0-36.0 RDW 14.6 High 11.6-13.7 Mean Platelet Volume 6.7 6.5-11.0 Influenza A&B 04/26/2013 Influenza A neg Influenza B neg CBC Electronic ([facility]) 01/20/2013 WBC 6.8 3.6-9.6 RBC 4.83 3.90-5.70 Hemoglobin (Fma/CMC/CTX) 12.0 g/dL Low 12.1 - 17.2 Hematocrit (Fma/CMC/CTX) 37.6 % 36.1 - 50.3 Platelets 279 10^3/ul 150-400 Lymph% 39.7 20.5-51.1 Mixed% 5.4 Neutrophils % 54.9 Mean Corpuscular Vol 78 Low 82.2-97.4 Mean Corpuscular Hemoglobin 24.9 Low 27.6-33.3 Mean Corpuscular Hemo Concen 32.0 32.0-36.0 RDW 13.4 11.6-13.7 Mean Platelet Volume 6.9 6.5-11.0 Comprehensive Metabolic Prof 01/20/2013 Albumin 4.5 g/dL 3.8-5.5 Alk. Phos. 105 U/L 30-110 Alt (SGPT) 11 U/L 7-35 Ast (Sgot) 20 U/L 5-34 BUN 15 mg/dL 6-26 Calcium 9.4 mg/dL 8.6-10.2 Chloride 102 mEq/L 94-112 Creatinine 0.9 mg/dL 0.6-1.4 Carbon Dioxide 25 mEq/L 21-32 Glucose 95 mg/dL 70-105 Sodium 139 mEq/L 134-149 Total Bilirubin 0.5 mg/dL 0.2-1.3 Total Protein 7.6 g/dL 6.3-8.1 Potassium 4.0 mEq/L 3.6-5.5 Globulin 3.1 g/dL 2.0-4.8 A/G Ratio 1.5 Calc 0.6-2.3 BUN/Creat Ratio 16.5 Calc 8.0-36.0 Laboratory test 01/20/2013 TSH 0.44 mIU/L Low 0.50-6.00 33 finding Laboratory test 01/20/2013 Vitamin D, 25 Oh 7.6 ng/mL Low 30.0-100.0 34 finding Laboratory test 05/15/2012 [facility] pt/inr/ptt,comp, finding cbc,ua Laboratory test 02/05/2012 B12 > 2100 pg/mL High 230-1050 35 finding Ua - Micro (Fma) 10/29/2011 Appearance CLEAR Color YELLOW Glucose NEG Bilirubin NEG Ketones NEG SP Grav 1.005 Blood NEG PH 5.5 Protein NEG Urobil 0.2 Nitrite NEG Leukocytes (a/CMC/Centrex) NEG WBC (a,Centrex) 0-1 Epith RARE /Lpf Bacteria RARE /Hpf Ua - Micro ([facility]) 02/20/2011 Appearance SLIGHTLY CLOUDY Color YELLOW Glucose NEG Bilirubin NEG Ketones NEG SP Grav >=1.030 Blood NEG PH 5.0 Protein NEG Urobil 0.2 Nitrite NEG Leukocytes (Fma/CMC/Centrex) NEG Hyaline - /Lpf Granular - /Lpf WBC (a,Centrex) 4-6 RBC 0-2 Mucus MODERATE /Lpf Epith MODERATE /Lpf Bacteria TRACE /Hpf Amorphous - /Lpf Crystals, Fluid (a/CMC/CTX) - Z#Comments - Laboratory test finding 02/20/2011 Urine Culture ([facility]) negative Laboratory test finding 09/08/2010 B12 132 pg/mL Low 230-1050 36 Ua - Micro ([facility]) 09/08/2010 Appearance CLOUDY Color YELLOW Glucose NEG Bilirubin NEG Ketones NEG SP Grav <=1.005 Blood NEG PH 5.0 Protein NEG Urobil 0.2 E.U./dL Nitrite NEG Leukocytes (Fma/CMC/Centrex) NEG Hyaline - /Lpf Granular - /Lpf WBC (a,Centrex) 1-2 RBC 0-1 Mucus - /Lpf Epith MODERATE /Lpf Bacteria TRACE /Hpf Amorphous - /Lpf Crystals, Fluid (a/CMC/CTX) - Z#Comments - CBC ([facility]) 09/08/2010 WBC 8.2 3.6-9.6 RBC 4.80 3.90-5.70 Hemoglobin (Fma/CMC/CTX) 13.3 g/dL 12.1 - 17.2 Hematocrit (a/CMC/CTX) 40.2 % 36.1 - 50.3 Platelets 295 10^3/ul 150-400 Lymph% 26.3 20.5-51.1 Mixed% 5.8 Neutrophils % 67.9 Mean Corpuscular Vol 84 82.2-97.4 Mean Corpuscular Hemoglobin 27.6 27.6-33.3 Mean Corpuscular Hemo Concen 33.0 33.0-36.0 RDW 12.9 11.6-13.7 Mean Platelet Volume 6.4 Low 7.4-10.4 Laboratory test finding 09/08/2010 Vitamin D, 25 Oh 9.5 ng/mL Low 32.0- 100.0 37 Urine Culture No significant g <SEE NOTE> 38 Thyroid Peroxidase AB 8 IU/mL 0-34 Laboratory test finding 07/17/2010 TSH 0.53 mIU/L 0.50-6.00 Free T3 3.11 pg/mL 2.00-4.90 Free T4 1.06 ng/dL 0.75-1.54 Laboratory test finding 02/25/2010 Glucose Random Whole Blood 83 60-105 Hemoglobin A1c (Fma/CMC,CX) 5.7 % 4.1-5.7 Laboratory test finding 02/25/2010 Free T4 1.21 ng/dL 0.75-1.54 TSH 0.44 mIU/L Low 0.50-6.00 39 1 SRC:vaginal lesions 1 sst 2 Source of Specimen: vaginal lesions 1 sst Client Requested Flag Negative <0.91 Equivocal 0.91 - 1.09 Positive >1.09 Note: Negative indicates no antibodies detected to HSV-1. Equivocal may suggest early infection. If clinically appropriate, retest at later date. Positive indicates antibodies detected to HSV-1. 3 Source of Specimen: vaginal lesions 1 sst Negative <0.91 Equivocal 0.91 - 1.09 Positive >1.09 Note: Negative indicates no antibodies detected to HSV-2. Equivocal may suggest early infection. If clinically appropriate, retest at later date. Positive indicates antibodies detected to HSV-2. 4 Source of Specimen: vaginal lesions 1 sst Negative <0.91 Equivocal 0.91 - 1.09 Positive >1.09 5 Source of Specimen: vaginal lesions 1 sst Negative No Herpes simplex virus isolated. 6 consistent w/ previous results 7 Slot Shift Manager: [id number] 1 SST 9 Non-immune <0.90 Equivocal 0.90 - 0.99 Immune >0.99 10 Negative <25.0 Equivocal 25.0 - 29.9 Positive >29.9 Presence of antibodies to Rubeola is presumptive evidence of immunity except when acute infection is suspected. 11 Negative <9.0 Equivocal 9.0 - 10.9 Positive >10.9 A positive result generally indicates past exposure to Mumps virus or previous vaccination. 12 1 sst 13 Thyroglobulin Antibody measured by [employer] 14 2 sst 15 RESULTS VERIFIED BY REPEAT ANALYSIS 16 RESULTS VERIFIED BY REPEAT ANALYSIS 17 consistent w/ previous results 18 SRC:<Blank> 19 Source of Specimen: <Blank> 20 Source of Specimen: <Blank> Culture shows less than 10,000 colony forming units of bacteria per milliliter of urine. This colony count is not generally considered to be clinically significant. 21 NOT CLEAN CATCH URINE 22 RUN DATE: 03/16/15 [facility] LAB LIVE PAGE 1 RUN TIME: [address] [place] [address] Specimen Inquiry Name: LATASHA GONZALEZ Silvestre : [address]: Dilma Burleson MD Acct: [id number] Unit: [id number] AGE: 49 Location: [facility] Re03/14/15 SEX: F Status: REG REF SPEC: [id number] SARAHY: 03/14/15-[address] [facility] [address]: Dilma Burleson MD REQ: [id number] RECD: 03/14/15-3888 STATUS: RES _ SOURCE: STOOL SPDESC: ORDERED: Stool Culture, C. diff Amp DNA, O P (Full) QUERIES: Provider Requisition # [id number] Procedure Result Verified Site Stool Culture Final 03/16/15- 0959 ML Result No enteric pathogens isolated Testing for Salmonella, Shigella, Aeromonas, Plesiomonas, Yersinia and Campylobacter are included in a Stool Culture. Vibrio spp not routinely tested for in a stool culture. If testing is desired, please request specifically when placing test order. Sensitivities not routinely performed on stool isolates, as antibiotics may prolong the carriage rate of bacteria. Please contact the microbiology lab if sensitivities are required. Stool Specimen Description Final 03/15/15- 30 ML Stool Color Light Brown Stool Form Nonformed Stool Consistency Pasty Shiga Toxin 1 2 Final 03/15/15- 0910 ML Organism 1 Negative Shiga Toxin 1 2 Immunochromatographic Assay CONTINUED ON NEXT PAGE * ML=Testing performed at Main Lab DEPARTMENT OF PATHOLOGY, [facility] [address] [place] [address] Patrick Laura M.D. Director [facility] # [id number] RUN DATE: 03/16/15 [facility] LAB LIVE PAGE 2 RUN TIME: 958 [facility] [employer] [place], [place] [address] Specimen Inquiry Patient: LATASHA GONZALEZ Silvestre [id number] (Continued) Specimen: [id number] Collected: 03/14/151320 Received: 03/14/15 (Continued) Procedure Result Verified Site Shiga Toxin 1 2 Final (continued) 03/15/15- 0910 C. difficile Amplified DNA Final 03/15/15- 1333 ML Organism 1 Neg: No C. difficile detected Assay tests for toxigenic C. difficile with Pathogen Locus (PALOC) TEST LIMITATIONS: Assay does not distinguish between viable and nonviable organisms. Test results are to be used in conjunction with information available from the patient clinical evaluation and other diagnostic procedures. Two distinct groups have been identified that can harbor C. difficile asymptomatically at very high rates. Colonization at rates up to 50% and higher have been reported in infants and rates up to 32% in cystic fibrosis patients. O P: Giardia/Cryptospor Screen Final 03/15/15- 0906 ML Organism 1 Neg Cryptosporidium/Giardia Giardia and cryptosporidium antigen testing performed by enzyme immunoassay. The use of colonic washes, aspirates or other diluted sample types has not been established and could affect the performance of the assay. Stool samples contaminated with an oily or particulate base (eg. Barium, mineral oil etc.) could interfere with the test and are not recommended. Ova Parasite Concen Full PENDING * ML - [facility]) . END OF REPORT * ML=Testing performed at Main Lab DEPARTMENT OF PATHOLOGY, [address] [place] [address] Patrick Laura M.D. Director [facility] # [id number] 23 SEE RESULT BELOW Name: RODY GONZALEZDANK Rivers : [address]: Dilma Burleson MD Acct: [id number] Unit: [id number] AGE: 49 Location: [facility] Re03/14/15 SEX: F Status: REG REF SPEC: [id number] SARAHY: 03/14/15-[address]: Dilma Burleson MD REQ: [id number] RECD: 03/14/157215 STATUS: COMP _ SOURCE: STOOL SPDESC: ORDERED: Stool Culture, C. diff Amp DNA, O P (Full) Procedure Result Verified Site Stool Culture Final 03/16/15- 0959 ML Result No enteric pathogens isolated Testing for Salmonella, Shigella, Aeromonas, Plesiomonas, Yersinia and Campylobacter are included in a Stool Culture. Vibrio spp not routinely tested for in a stool culture. If testing is desired, please request specifically when placing test order. Sensitivities not routinely performed on stool isolates, as antibiotics may prolong the carriage rate of bacteria. Please contact the microbiology lab if sensitivities are required. Stool Specimen Description Final 03/15/15- 0830 ML Stool Color Light Brown Stool Form Nonformed Stool Consistency Pasty Shiga Toxin 1 2 Final 03/15/15- 909 ML Organism 1 Negative Shiga Toxin 1 2 Immunochromatographic Assay CONTINUED ON NEXT PAGE * ML=Testing performed at [facility] DEPARTMENT OF PATHOLOGY, [address] [place] [address] Patrick Laura M.D. Director [facility] # [id number] Patient: LATASHA GONZALEZ [id number] (Continued) Specimen: [id number] Collected: 03/14/15 Received: 03/14/15 (Continued) Procedure Result Verified Site Shiga Toxin 1 2 Final (continued) 03/15/15- 909 C. difficile Amplified DNA Final 03/15/15- 3 ML Organism 1 Neg: No C. difficile detected Assay tests for toxigenic C. difficile with Pathogen Locus (PALOC) TEST LIMITATIONS: Assay does not distinguish between viable and nonviable organisms. Test results are to be used in conjunction with information available from the patient clinical evaluation and other diagnostic procedures. Two distinct groups have been identified that can harbor C. difficile asymptomatically at very high rates. Colonization at rates up to 50% and higher have been reported in infants and rates up to 32% in cystic fibrosis patients. O P: Giardia/Cryptospor Screen Final 03/15/15- 0906 ML Organism 1 Neg Cryptosporidium/Giardia Giardia and cryptosporidium antigen testing performed by enzyme immunoassay. The use of colonic washes, aspirates or other diluted sample types has not been established and could affect the performance of the assay. Stool samples contaminated with an oily or particulate base (eg. Barium, mineral oil etc.) could interfere with the test and are not recommended. Ova Parasite Concen Full Final 03/19/15- 1310 ML Final Result No Ova Parasites seen by Ethyl Acetate Concentration No Cysts or Trophs Seen on Trichrome smear CONTINUED ON NEXT PAGE * ML=Testing performed at Main Lab DEPARTMENT OF PATHOLOGY, [address] [place] [address] Patrick Laura M.D. Director [facility] # [id number] Patient: MAKENNALATASHA A [id number] (Continued) Specimen: [id number] Collected: 03/14/15-1320 Received: 03/14/15-1438 (Continued) Procedure Result Verified Site Ova Parasite Concen Full Final (continued) 03/19/15- 1310 Cyclospora and Microsporidia testing not routinely performed with full Ova and Parasite analysis. As with all diagnostic procedures, the results obtained should be used in conjunction with other clinical information available to the physician, including confirmation by another method. One negative specimen does not rule out the possibility of a parasitic infection. To improve detection it is recommended that three specimens be collected on separate days over a period of not more than seven days. * ML - MAIN LAB ([facility]) . END OF REPORT * ML=Testing performed at Main Lab DEPARTMENT OF PATHOLOGY, [facility] [address] [place], [place] [address] Patrick Laura M.D. Director [facility] # [id number] 24 RUN DATE: 03/15/15 [facility] LAB LIVE PAGE 1 RUN TIME: 1333 [facility] [employer] [place], [place] [address] Specimen Inquiry Name: LATASHA GONZALEZ : [address]: Dilma Burleson MD Acct: [id number] Unit: [id number] AGE: 49 Location: [facility] Re03/14/15 SEX: F Status: REG REF SPEC: [id number] SARAHY: 03/14/15-[address]: Dilma Burleson MD REQ: [id number] RECD: 03/14/15-1437 STATUS: RES _ SOURCE: STOOL SPDESC: ORDERED: Stool Culture, C. diff Amp DNA, O P (Full) QUERIES: Provider Requisition # [id number] Procedure Result Verified Site Stool Culture PENDING Stool Specimen Description Final 03/15/15- 0830 ML Stool Color Light Brown Stool Form Nonformed Stool Consistency Pasty Shiga Toxin 1 2 Final 03/15/15- 0910 ML Organism 1 Negative Shiga Toxin 1 2 Immunochromatographic Assay C. difficile Amplified DNA Final 03/15/15- 1333 ML Organism 1 Neg: No C. difficile detected Assay tests for toxigenic C. difficile with Pathogen Locus (PALOC) TEST LIMITATIONS: Assay does not distinguish between viable and nonviable organisms. Test results are to be used in conjunction with information available from the patient clinical evaluation and other diagnostic procedures. Two distinct groups have been identified that can harbor C. difficile asymptomatically at very high rates. Colonization at rates up to 50% and higher have been reported in infants and rates CONTINUED ON NEXT PAGE * ML=Testing performed at Main Lab DEPARTMENT OF PATHOLOGY, [facility] [address] [place], [place] [address] Patrick Laura M.D. Director [facility] # [id number] RUN DATE: 03/15/15 [facility] LAB LIVE PAGE 2 RUN TIME: [address] [place] [address] Specimen Inquiry Patient: LATASHA GONZALEZ Silvestre [id number] (Continued) Specimen: [id number] Collected: 03/14/15-132 Received: 03/14/15-2374 (Continued) Procedure Result Verified Site C. difficile Amplified DNA Final (continued) 03/15/15- 1333 up to 32% in cystic fibrosis patients. O P: Giardia/Cryptospor Screen Final 03/15/15- 09 ML Organism 1 Neg Cryptosporidium/Giardia Giardia and cryptosporidium antigen testing performed by enzyme immunoassay. The use of colonic washes, aspirates or other diluted sample types has not been established and could affect the performance of the assay. Stool samples contaminated with an oily or particulate base (eg. Barium, mineral oil etc.) could interfere with the test and are not recommended. Ova Parasite Concen Full PENDING * ML - [facility] ([facility]) . END OF REPORT * ML=Testing performed at Main Lab DEPARTMENT OF PATHOLOGY, [address] [place] [address] Patrick Laura M.D. Director [facility] # [id number] 25 1SST 26 RESULTS VERIFIED BY REPEAT ANALYSIS 27 RESULTS VERIFIED BY REPEAT ANALYSIS 28 RESULTS VERIFIED BY REPEAT ANALYSIS 29 consistent w/ previous results 30 RESULT DAVIDE'D 31 [facility] [employer] DEPARTMENT OF PATHOLOGY or Extension [address] [employer] CYTOLOGY REPORT Patient: LATASHA GONZALEZ : 1965 AGE: 48 Y SEX: F Acct: [id number] Procedure Date: 08/01/2013 Date Received: 08/02/2013 Requesting Provider: DILMA BURLESON MD Location: [facility] Case No. [id number] Requisition #: [id number] CYTOLOGIC INTERPRETATION: SPECIMEN ADEQUACY SATISFACTORY FOR EVALUATION, ENDOCERVICAL TRANSFORMATION ZONE COMPONENT PRESENT GENERAL CATEGORIZATION NEGATIVE FOR INTRAEPITHELIAL LESIONS OR MALIGNANCY RECOMMENDATIONS Refer to the corresponding web sites for 2012 updated general recommendation guidelines of [place]. preventive service task force for cervical cancer screening, and www.asccp.org//xyrxiscgl9415. COMMENTS Thin Prep Pap tests are examined with an FDA approved location-guidance system. Thin Prep dental practitioner was unable to read specimen, therefore full manual review was performed. PATIENT DATA: SPECIMEN SUBMITTED: * * (HPVII) THIN PREP W/HPV (LSIL/ASC/CONRADO) * * ENDOCERVICAL RELEVANT HISTORY: LMP: / Comment: PREVIOUS PAP: 05/19 WNL, +HPV IN PAST ADDITIONAL COPIES SENT TO: Screened/Rescreened Electronically Signed Sign Out Date/Time: by: by: DEJON MAJANO, 08/02/2013 16:58 CT(ASCP) Note: The Pap smear is a screening test designed to aid in the detection of premalignant and malignant conditions of the uterine cervix. It is not a diagnostic procedure and should not be used as the sole means of detecting cervical cancer. Both false-positive and false-negative reports do occur. 00 UA Pap Smear performed at [employer] Labs Dir: Ingris Ash MD, [address] [place] [address] 01 leadership program internship [place] Dir: Ambrose Quinn MD, [address] [facility] [id number] 02 [facility] [place] Dir: Edwin Aguayo MD, [address] [facility] [id number] For inquiries regarding HPV test results, the physician may contact [facility]: [phone] . 32 2 SST 33 result davide'd 34 Vitamin D deficiency has been defined by the [place] [employer] and an Endocrine Society practice guideline as a level of serum 25-OH vitamin D less than 20 ng/mL (1,2). The Endocrine Society went on to further define vitamin D insufficiency as a level between 21 and 29 ng/mL (2). 1. IOM ([place] [employer]). 2010. Dietary reference intakes for calcium and D. [place]: The National Academies Press. 2. Scar MF, Chapito [place], Isabel-Raul ARELLANO, et al. Evaluation, treatment, and prevention of vitamin D deficiency: an Endocrine Society clinical practice guideline. JCEM. 2010; 96(7):1911-30. 35 PATIENT GETS B12 INJECTIONS. 36 RESULT DAVIDE'D 37 Recent studies consider the lower limit of 32.0 ng/mL to be a threshold for optimal health. Walter VALENZUELA. J Nutr. 2004;135(2):317-22. 38 No significant growth. 39 RESULT DAVIDE'D Procedures Date CPT Code Description Status 07/01/2018 19914 Vision Test- screening test of visual acuity, Completed quantitative, bila 02/25/2018 Mammogram Completed 02/24/2017 26481 Electrocardiogram Complete Completed 04/06/2015 Mammogram Completed 12/21/2012 Colonoscopy Completed 08/25/2012 65006 Pulse Oximetry Completed 02/05/2012 77710 Injection Subcutaneous Or Intramuscular Completed 03/27/2011 Mammogram Completed 02/20/2011 91270 Injection Subcutaneous Or Intramuscular Completed 12/01/2010 13164 Injection Subcutaneous Or Intramuscular Completed 09/23/2010 96914 Injection Subcutaneous Or Intramuscular Completed 03/17/2010 Mammogram Completed Encounters Type Date Location Provider CPT E/M Dx Office Visit 10/07/2018 3:00p [facility] Dilma Burleson, 41648 M54.41 Trin[place] F90.0 B00.9 Office Visit 10/04/2018 1:00p [facility] Breanna Putnam, [employer] 06363 M54.5 M46.1 Office Visit 07/26/2018 7:00p [facility] Samanta Mast, [facility] [address] M46.1 Office Visit 07/01/2018 2:00p [facility] Dilma Burleson M.D. 27529 Z00.01 F90.0 R10.9 R10.2 N76.0 F43.23 Office Visit 05/19/2018 1:40p [facility] Dilma Burleson M.D. 18206 F90.0 R10.9 R25.2 F43.22 Office Visit 02/17/2018 11:20a [facility] Dilma Burleson M.D. 98771 R10.9 Z12.31 B35.6 F90.0 R82.99 Z79.899 Office Visit 10/23/2017 10:00a [facility] Dilma Burleson M.D. 74557 Z11.1 Office Visit 10/23/2017 10:00a [facility] Dilma Burleson M.D. 65670 Z11.1 Z01.84 Office Visit 10/20/2017 7:10p [facility] Dilma Burleson M.D. 59164 F90.0 Z63.79 Z02.9 Z11.1 Office Visit 02/24/2017 3:20p [facility] Dilma Burleson M.D. 68832 R07.89 R94.6 F15.280 F90.0 Office Visit 12/21/2016 12:20p [facility] Dilma Burleson M.D. 21097 R94.6 F90.0 M79.671 M79.672 Z63.79 E66.8 Office Visit 11/16/2016 2:00p [facility] Dilma Burleson M.D. 05410 R50.9 R94.6 Office Visit 09/09/2016 2:00p [facility] Dilma Burleson M.D. 75872 Z00.00 Z12.31 F90.0 E66.8 E55.9 N39.0 Office Visit 04/28/2016 11:15a [facility] Dina Cyr, 23708 S93.401A Afnp-C Office Visit 01/07/2016 1:45p [facility] Dina Cyr, 45599 J06.9 Afnp-C Office Visit 12/12/2015 11:30a [facility] Dilma Burleson, 84976 J01.80 Trinidad J06.9 F90.0 E66.8 Office Visit 09/16/2015 5:40p [facility] Dilma Burleson M.D. 16920 F90.0 E66.8 F43.21 E55.9 R25.2 Office Visit 06/27/2015 3:40p [facility] Dilma Burleson M.D. 98138 314.00 311 Office Visit 05/16/2015 1:40p [facility] Dilma Burleson M.D. 87180 461.0 314.00 278.00 Office Visit 03/21/2015 1:00p [facility] Dilma Burleson M.D. 28006 V70.0 314.00 268.9 281.9 278.00 Office Visit 03/14/2015 9:00a [facility] Dilma Burleson M.D. 84366 009.3 V76.12 V70.0 268.9 Office Visit 09/03/2014 8:20p [facility] Dilma Burleson M.D. 39699 724.2 719.41 314.00 Office Visit 06/19/2014 8:30a [place] [address] 789.04 788.33 564.9 V76.41 Office Visit 04/23/2014 7:40p [facility] Dilma Burleson M.D. 40761 311 314.00 Office Visit 03/12/2014 6:30p [facility] Dilma Burleson M.D. 28038 311 268.9 314.00 Office Visit 02/05/2014 7:50p [facility] Dilma Burleson M.D. 02206 311 268.9 Office Visit 08/01/2013 2:00p [facility] Dilma Burleson M.D. 91524 V70.0 V72.31 v04.81 577.0 314.00 278.00 281.9 Office Visit 07/03/2013 7:10p [facility] Dilma Burleson M.D. 78713 577.0 789.01 Office Visit 04/26/2013 3:45p [facility] Office Priscilla Mcdonald [facility] 43254 780.79 Office Visit 02/09/2013 1:00p [facility] ANDREA MotaP 54250 461.0 269.2 Office Visit 01/12/2013 3:40p [facility] Dilma Burleson M.D. 34185 314.00 269.2 308.3 V70.0 782.1 Office Visit 08/25/2012 8:00p [facility] Adi Sanford M.D. 24868 461.0 Office Visit 04/27/2012 6:40p [facility] Kerry Burkett M.D. 00843 V72.83 V72.84 626.2 528.9 Office Visit 02/05/2012 10:45a [facility] Harini Kerr freda-C 66479 461.9 281.1 281.9 Office Visit 10/29/2011 3:10p [facility] Office Mariam Cartagena M.D. 06912 618.9 569.1 Office Visit 02/20/2011 9:10a [facility] Office Hipolito Porter M.D. 33120 788.41 724.5 281.1 281.9 Office Visit 12/01/2010 11:00a [facility] Yosi Ernst M.D. 85776 281.9 V06.5 244.9 522.5 Office Visit 09/08/2010 2:00p [facility] eKrry Burkett M.D. 62091 724.5 281.1 246.8 788.33 268.9 Office Visit 07/17/2010 3:10p [facility] Dilma Burleson M.D. 63307 577.0 244.9 790.6 Office Visit 06/26/2010 11:15a [facility] Office Dominique Jensen 75957 525.9 Office Visit 02/25/2010 1:00p [facility] Dina CyrDominique 64151 V18.0 311 V06.5 v06.5 Office Visit 11/15/2009 4:10p [facility] Yosi Ernst M.D. 89060 461.9 Office Visit 08/14/2009 11:15a [facility] Office Dominique Jensen 27719 311 300.00 Office Visit 06/19/2009 1:15p [facility] Office Dominique Jensen 76309 311 388.70 Office Visit 12/25/2008 2:00p [facility] Office Dominique Jensen 32565 847.0 Plan of Care 10/07/2018 - Dilma Burleson M.D.M54.41 Lumbago with sciatica, right sideComments:Be diligent with your PTDo the exercises at home as directed.You are just out of shape and weak. ~B_Strong Women Stay Young~b_. A book about strength training exercises you can do at home without muchequipment. YOu can continue the Ibuprofen with food in your stomach, tylenol, cyclobenzaprine.icy hottraumeeltopricinfoam roller for your tight muscles.Lidya LiuGosmennztJ84.0 Attn- defct hyperactivity disorder, predom inattentive typeB00.9 Herpesviral infection , unspecifiedNew Medication:Valacyclovir HCL 500 mgAllComments:~B_~U_Medication Management~b_~u_ Patient Understands medications she's taking? Yes No Are there Barriers to Adherence? Yes No Has the patient been asked about herbal supplements and therapies, and OTC meds? Yes No
[2018-11-20 07:54] VITALS: BP 117/87
--- NOTE | 2018-11-20 08:15 | UC ---
Complaint Female HPI - HPI Summary HPI Summary: 53-year-old woman comes in with a chief complaint of left flank pain suprapubic pressure and dysuria. This all started yesterday. No fevers or chills. Patient reports the pressure is a 6 out of 10. It's worse with pushing on her left flank or her left lower abdomen. No change in her bowels. - History Of Current Complaint Chief Complaint: UCGU Stated Complaint: URINARY Time Seen by Provider: 11/20/18 07:44 Pain Intensity: 6 - Allergies/Home Medications Allergies/Adverse Reactions: Allergies Allergy/AdvReac Type Severity Reaction Status Date / Time No Known Allergies Allergy Verified 11/20/18 07:48 Home Medications: Home Medications Ibuprofen TAB* [Advil TAB*] 600 mg PO Q6H PRN 11/20/18 [History Confirmed ] PMH/Surg Hx/FS Hx/Imm Hx Previously Healthy: Yes - Surgical History Surgical History: Yes Surgery Procedure, Year, and Place: GASTRIC BYPASS, HERNIA REPAIR, GALLBLADDER REMOVAL, HYSTERECTOMY - Family History Known Family History: Positive: Cardiac Disease - Social History Alcohol Use: None Substance Use Type: None Smoking Status (MU): Never Smoked Tobacco Have You Smoked in the Last Year: No - Immunization History Most Recent Influenza Vaccination: 1643-8871 season Review of Systems All Other Systems Reviewed And Are Negative: Yes Constitutional: Positive: Negative Skin: Positive: Negative Eyes: Positive: Negative ENT: Positive: Negative Respiratory: Positive: Negative Cardiovascular: Positive: Negative Gastrointestinal: Positive: Abdominal Pain - LEFT FLANK/LLQ/SUPRAPUBIC. Negative: Vomiting, Diarrhea Genitourinary: Positive: Dysuria, Frequency Motor: Positive: Negative Neurovascular: Positive: Negative Musculoskeletal: Positive: Negative Neurological: Positive: Negative Psychological: Positive: Negative Is Patient Immunocompromised?: No Physical Exam Triage Information Reviewed: Yes Appearance: Well-Appearing, Well-Nourished, Pain Distress - MILD Vital Signs: Initial Vital Signs Temp 98.1 F 11/20/18 07:50 Pulse 82 11/20/18 07:50 Resp 17 11/20/18 07:50 BP 117/87 11/20/18 07:50 Vital Signs Reviewed: Yes Eye Exam: Normal Eyes: Positive: Conjunctiva Clear Neck exam: Normal Neck: Positive: Supple Respiratory: Positive: Lungs clear, Normal breath sounds, No respiratory distress Cardiovascular: Positive: RRR Abdomen Description: Positive: Soft, CVA Tenderness (L), Other: - MILD TENDERNESS TO PALPATION LLQ/SUPRAPUBIC AREA. NO REBOUND OR GUARDING.. Negative : CVA Tenderness (R) Bowel Sounds: Positive: Present Musculoskeletal Exam: Normal Musculoskeletal: Positive: Strength Intact, ROM Intact Neurological Exam: Normal Neurological: Positive: Alert, Muscle Tone Normal Psychological Exam: Normal Psychological: Positive: Age Appropriate Behavior Skin Exam: Normal Complaint Female Dx - Course Course Of Treatment: Patient's urine is positive for leukocytes. Otherwise negative. I discussed the results with the patient. We also discussed overall her symptoms are most probably consistent with a urinary tract infection however does not completely rule out kidney stone or diverticulitis or another cause for her pain and symptoms. We discussed getting a CT scan versus treating for UTI. At this time the patient prefers to treat for UTI and the plan will be if she worsens or does not improve she can go the emergency department for further evaluation and care. - Differential Dx/Diagnosis Provider Diagnosis: Dysuria, Left flank pain, Pyuria Discharge - Sign-Out/Discharge Documenting (check all that apply): Patient Departure All imaging exams completed and their final reports reviewed: No Studies - Discharge Plan Condition: Stable Disposition: HOME Prescriptions: Sulfamethox/Trimethoprim DS* [Bactrim DS 800/160 TAB*] 1 tab PO BID #20 tab Patient Education Materials: Urinary Tract Infection in Women (ED), Dysuria (ED ), Flank Pain (ED) Referrals: Dilma Shaikh MD [Primary Care Provider] - Additional Instructions: FOLLOW UP WITH YOUR DOCTOR IF NOT COMPLETELY IMPROVED. GO TO THE EMERGENCY DEPARTMENT FOR ANY WORSENING OF YOUR CONDITION; PAIN, FEVER , YOU FEEL ILL OR QUESTIONS OR CONCERNS. - Billing Disposition and Condition Condition: STABLE Disposition: Home
== END 2018-11-20 08:22 | disposition home or self-care (01) ==
LOC: UCCORT 07:39
DX: R30.0 Dysuria (principal); R10.9 Unspecified abdominal pain; N39.0 Urinary tract infection, site not specified
CPT/HCPCS: 81003; 87086; 99212; G0463